=== PATIENT | female | born 1940 | race African-American/Black ===

== ENCOUNTER 2023-08-13 13:45 | Emergency (ER) | payer OTHER ==
[~2023-08-13] VITALS: Ht 167.6 cm; Wt 78.0 kg
[2023-08-13 13:47] VITALS: O2SAT 94
[2023-08-13] MEDS: SODIUM CHLORIDE 0.9% 1,000 ML IV ONE (14:36)
[2023-08-13 14:47] LABS: BASOPHILS % 0.6 % (0.0-2.0); EOSINOPHILS % 3.7 % (0.0-5.0); HEMATOCRIT. 33.4 % (36.0-48.0); HEMOGLOBIN. 11.1 g/dL (12.0-16.0); LYMPHOCYTES % 15.8 % (20.0-50.0); MEAN CORPUSCULAR HEMOGLOBIN 29.5 pg (28.0-32.0); MEAN CORPUSCULAR HGB CONC 33.2 g/dL (31.0-37.0); MEAN CORPUSCULAR VOLUME 88.8 fL (81.0-99.0); MEAN PLATELET VOLUME 9.8 fl (7.4-10.4); MONOCYTES % 7.3 % (2.0-8.0); NEUTROPHILS % 72.6 % (40.0-76.0); PLATELET 202 x1000/uL (130-400); RED BLOOD CELL COUNT 3.77 mill/uL (4.2-5.4); RED CELL DISTRIBUTION WIDTH 15.8 % (11.6-14.6); WHITE BLOOD COUNT 6.6 x1000/uL (4.5-11.0)
[2023-08-13 14:48] LABS: ALANINE AMINOTRANSFERASE 11 IU/L (10-49); ALBUMIN 4.1 g/dL (3.2-4.8); ASPARTATE AMINOTRANSFERASE 17 IU/L (<34); BILIRUBIN TOTAL 0.4 mg/dL (0.1-1.0); CALCIUM 8.5 mg/dL (8.7-10.4); CARBON DIOXIDE 25 mEq/L (21-32); CHLORIDE 106 mEq/L (98-107); GLUCOSE 127 mg/dL (70-105); POTASSIUM 3.5 mEq/L (3.5-5.1); PROTEIN TOTAL 6.3 g/dL (6.0-8.3); SODIUM 139 mEq/L (136-145); UREA NITROGEN BLOOD 26 mg/dL (9-23)
[2023-08-13 14:52] LABS: TROPONIN I HIGH SENSITIVITY < 4 ng/L (3.0-34)
[2023-08-13 16:11] LABS: CLARITY URINE CLEAR (CLEAR); COLOR URINE YELLOW (YELLOW); GLUCOSE URINE NEGATIVE (NEGATIVE); KETONES URINE NEGATIVE (NEGATIVE); LEUKOCYTE ESTERASE URINE NEGATIVE (NEGATIVE); NITRITE URINE NEGATIVE (NEGATIVE); OCCULT BLOOD URINE NEGATIVE (NEGATIVE); PH URINE 6.5 (4.5-8.0); PROTEIN URINE NEGATIVE (NEGATIVE); SPECIFIC GRAVITY URINE 1.012 (1.005-1.030)
[2023-08-13] MEDS: HALOPERIDOL LACTATE 5MG/ML VIAL IM ONE (18:52)
[2023-08-13 19:29] VITALS: BP 129/63; PULSE 85; RESP 16; TEMP 98.2
[2023-08-13] MEDS: CEFTRIAXONE 1GM/50ML 50 ML IV ONE (19:29)
== END 2023-08-13 19:57 | disposition short-term general hospital (02) ==
LOC: ER 13:45 → EDBEDREQ 14:14 → EDBEDREQSVC 15:21 → ER 19:57 → CANBEDREQ 22:54
DX: R55 Syncope and collapse (principal); F03.90 Unspecified dementia, unspecified severity, without behavioral disturbance, psychotic disturbance, mood disturbance, and anxiety; I10 Essential (primary) hypertension; E03.9 Hypothyroidism, unspecified
CPT/HCPCS: 99285; 96365; 70450; 71045; 96361; 80053; 81003; 83605; 85025; 87040; 84484; 36415; 93005; 96372; J0696; J1630; J7030

== ENCOUNTER 2024-04-18 15:57 | Emergency (ER) | payer OTHER ==
[~2024-04-18] VITALS: Ht 160 cm; Wt 54.0 kg
[2024-04-18 16:03] VITALS: O2SAT 97
[2024-04-18 16:54] LABS: BASOPHILS % 0.6 % (0.0-2.0); EOSINOPHILS % 4.3 % (0.0-5.0); HEMATOCRIT. 36.5 % (36.0-48.0); HEMOGLOBIN. 12.1 g/dL (12.0-16.0); LYMPHOCYTES % 22.1 % (20.0-50.0); MEAN CORPUSCULAR HEMOGLOBIN 29.7 pg (28.0-32.0); MEAN CORPUSCULAR HGB CONC 33.1 g/dL (31.0-37.0); MEAN CORPUSCULAR VOLUME 89.6 fL (81.0-99.0); MONOCYTES % 6.8 % (2.0-8.0); NEUTROPHILS % 66.2 % (40.0-76.0); PLATELET 277 x1000/uL (130-400); RED BLOOD CELL COUNT 4.08 mill/uL (4.2-5.4); RED CELL DISTRIBUTION WIDTH 14.3 % (11.6-14.6)
[2024-04-18 17:03] LABS: CHLORIDE 109 mEq/L (98-107); SODIUM 143 mEq/L (136-145)
[2024-04-18 17:04] LABS: CARBON DIOXIDE 25 mEq/L (21-32)
[2024-04-18 17:05] LABS: CALCIUM 9.3 mg/dL (8.7-10.4)
[2024-04-18 17:09] LABS: CREATININE 1.1 mg/dL (0.6-1.0); GLUCOSE 111 mg/dL (70-105)
[2024-04-18 17:10] LABS: UREA NITROGEN BLOOD 30 mg/dL (9-23)
[2024-04-18 17:14] LABS: THYROID STIMULATING HORMONE 2.48 uIU/mL (0.55-4.78)
[2024-04-18 17:23] LABS: TROPONIN I HIGH SENSITIVITY < 4 ng/L (3.0-34)
[2024-04-18] MEDS: LORAZEPAM 2MG/ML INJ IV ONE (18:47)
[2024-04-18 22:06] LABS: TROPONIN I HIGH SENSITIVITY < 4 ng/L (3.0-34)
[2024-04-18 23:54] VITALS: BP 161/71; PULSE 68; RESP 16; TEMP 37.05852; O2SAT 100
== END 2024-04-18 23:57 | disposition short-term general hospital (02) ==
LOC: ER 15:57
DX: R55 Syncope and collapse (principal); F03.90 Unspecified dementia, unspecified severity, without behavioral disturbance, psychotic disturbance, mood disturbance, and anxiety; E03.9 Hypothyroidism, unspecified; I10 Essential (primary) hypertension; Z91.040 Latex allergy status
CPT/HCPCS: 99285; 96374; 71045; 80048; 82962; 83880; 83605; 84443; 85025; 84484; 36415; 93005; J2060

== ENCOUNTER 2024-04-20 15:03 | Emergency (ER) | payer OTHER ==
[~2024-04-20] VITALS: Ht 167.6 cm; Wt 70.0 kg
[2024-04-20 15:06] VITALS: O2SAT 98
[2024-04-20 15:36] LABS: BASOPHILS % 0.8 % (0.0-2.0); EOSINOPHILS % 6.5 % (0.0-5.0); HEMATOCRIT. 35.7 % (36.0-48.0); LYMPHOCYTES % 28.2 % (20.0-50.0); MEAN CORPUSCULAR HEMOGLOBIN 29.8 pg (28.0-32.0); MEAN CORPUSCULAR HGB CONC 33.6 g/dL (31.0-37.0); MEAN CORPUSCULAR VOLUME 88.5 fL (81.0-99.0); MEAN PLATELET VOLUME 8.9 fl (7.4-10.4); MONOCYTES % 7.5 % (2.0-8.0); PLATELET 246 x1000/uL (130-400); RED BLOOD CELL COUNT 4.03 mill/uL (4.2-5.4); RED CELL DISTRIBUTION WIDTH 14.4 % (11.6-14.6); WHITE BLOOD COUNT 6.6 x1000/uL (4.5-11.0)
[2024-04-20 15:45] LABS: CHLORIDE 107 mEq/L (98-107); POTASSIUM 3.6 mEq/L (3.5-5.1); SODIUM 141 mEq/L (136-145)
[2024-04-20 15:46] LABS: CALCIUM 9.4 mg/dL (8.7-10.4); CARBON DIOXIDE 24 mEq/L (21-32)
[2024-04-20 15:51] LABS: GLUCOSE 114 mg/dL (70-105); UREA NITROGEN BLOOD 31 mg/dL (9-23)
[2024-04-20 16:12] LABS: TROPONIN I HIGH SENSITIVITY < 4 ng/L (3.0-34)
[2024-04-20 19:07] VITALS: BP 131/68; PULSE 88; RESP 14; TEMP 36.66960; O2SAT 98
== END 2024-04-20 19:37 | disposition short-term general hospital (02) ==
LOC: ER 15:03 → EDBEDREQ 15:17 → ER 19:37
DX: R55 Syncope and collapse (principal); R07.89 Other chest pain; R06.02 Shortness of breath; I10 Essential (primary) hypertension; F03.90 Unspecified dementia, unspecified severity, without behavioral disturbance, psychotic disturbance, mood disturbance, and anxiety; Z91.040 Latex allergy status; Z86.39 Personal history of other endocrine, nutritional and metabolic disease
CPT/HCPCS: 36415; 71045; 80048; 84484; 85025; 93005; 99285

== ENCOUNTER 2024-06-22 14:16 | Emergency (ER) | payer OTHER ==
[~2024-06-22] VITALS: Ht 160 cm; Wt 65.0 kg
[2024-06-22 14:23] VITALS: O2SAT 98
[2024-06-22 15:52] LABS: BASOPHILS % 1.2 % (0.0-2.0); EOSINOPHILS % 5.7 % (0.0-5.0); HEMATOCRIT. 34.8 % (36.0-48.0); HEMOGLOBIN. 11.5 g/dL (12.0-16.0); LYMPHOCYTES % 15.3 % (20.0-50.0); MEAN CORPUSCULAR HEMOGLOBIN 29.3 pg (28.0-32.0); MEAN CORPUSCULAR HGB CONC 33.2 g/dL (31.0-37.0); MEAN CORPUSCULAR VOLUME 88.4 fL (81.0-99.0); MEAN PLATELET VOLUME 8.5 fl (7.4-10.4); MONOCYTES % 5.8 % (2.0-8.0); PLATELET 283 x1000/uL (130-400); RED BLOOD CELL COUNT 3.93 mill/uL (4.2-5.4); RED CELL DISTRIBUTION WIDTH 14.4 % (11.6-14.6); WHITE BLOOD COUNT 6.2 x1000/uL (4.5-11.0)
[2024-06-22] MEDS: SODIUM CHLORIDE 0.9% (SEPSIS BOLUS) IV ONE (15:53)
[2024-06-22 15:59] LABS: CHLORIDE 106 mEq/L (98-107); SODIUM 141 mEq/L (136-145)
[2024-06-22 16:00] LABS: CARBON DIOXIDE 28 mEq/L (21-32)
[2024-06-22 16:01] LABS: CALCIUM 9.5 mg/dL (8.7-10.4)
[2024-06-22 16:05] LABS: CREATININE 0.9 mg/dL (0.6-1.0); GLUCOSE 125 mg/dL (70-105)
[2024-06-22 16:06] LABS: UREA NITROGEN BLOOD 23 mg/dL (9-23)
[2024-06-22 16:19] LABS: TROPONIN I HIGH SENSITIVITY < 4 ng/L (3.0-34)
[2024-06-22 16:38] LABS: INR 0.9; PROTHROMBIN TIME 10.3 sec (9.6-11.0)
[2024-06-22] MEDS: ONDANSETRON HCL 4MG/2ML INJ IV ONE (16:39)
[2024-06-22] MEDS: CEFTRIAXONE 1GM/50ML 50 ML IV ONE (16:39)
[2024-06-22] MEDS: LORAZEPAM 2MG/ML INJ IV ONE (18:48)
[2024-06-22] MEDS ORDERED: LORAZEPAM 2MG/ML INJ IV ONE (20:15)
[2024-06-22] MEDS ORDERED: ONDA4TAB50 MT (20:26)
[2024-06-22 23:11] VITALS: BP 152/73; PULSE 70; RESP 14; TEMP 36.55848; O2SAT 100
== END 2024-06-22 23:17 ==
LOC: ER 14:16 → EDBEDREQTM 18:11 → EDBEDREQSVC 18:11 → EDBEDREQ 18:11 → ER 23:17
DX: R55 Syncope and collapse (principal); R10.9 Unspecified abdominal pain; F03.90 Unspecified dementia, unspecified severity, without behavioral disturbance, psychotic disturbance, mood disturbance, and anxiety; E03.9 Hypothyroidism, unspecified; I10 Essential (primary) hypertension; Z91.040 Latex allergy status
CPT/HCPCS: 99285; 74176; 96365; 96375; 71045; 96361; 80048; 83605; 85025; 85610; 87040; 84484; 36415; 84145; 93005; J0696; J2060; J2405; J7030

== ENCOUNTER 2025-02-24 15:03 | Emergency (ER) | payer OTHER ==
[~2025-02-24] VITALS: Ht 165.1 cm; Wt 61.0 kg
[~2025-02-24 15:03] MED LIST: ONDA4TAB50 MT
[2025-02-24 15:10] VITALS: O2SAT 99
[2025-02-24] MEDS: SODIUM CHLORIDE 0.9% 1,000 ML IV ONE (16:08)
[2025-02-24 16:31] LABS: BASOPHILS % 0.7 % (0.0-2.0); EOSINOPHILS % 1.8 % (0.0-5.0); HEMATOCRIT. 32.5 % (36.0-48.0); HEMOGLOBIN. 10.8 g/dL (12.0-16.0); LYMPHOCYTES % 9.8 % (20.0-50.0); MEAN PLATELET VOLUME 9.3 fl (7.4-10.4); MONOCYTES % 5.8 % (2.0-8.0); NEUTROPHILS % 81.9 % (40.0-76.0); PLATELET 253 x1000/uL (130-400); RED BLOOD CELL COUNT 3.74 mill/uL (4.2-5.4); RED CELL DISTRIBUTION WIDTH 14.3 % (11.6-14.6)
[2025-02-24 16:46] LABS: CREATININE 0.8 mg/dL (0.6-1.0); UREA NITROGEN BLOOD 17 mg/dL (9-23)
[2025-02-24 16:47] LABS: TROPONIN I HIGH SENSITIVITY < 4 ng/L (3.0-34)
[2025-02-24 19:31] LABS: TROPONIN I HIGH SENSITIVITY < 4 ng/L (3.0-34)
[2025-02-24 20:21] LABS: BASOPHILS % 0.4 % (0.0-2.0); EOSINOPHILS % 0.3 % (0.0-5.0); HEMATOCRIT. 35.7 % (36.0-48.0); HEMOGLOBIN. 11.7 g/dL (12.0-16.0); LYMPHOCYTES % 9.9 % (20.0-50.0); MEAN PLATELET VOLUME 8.6 fl (7.4-10.4); MONOCYTES % 4.2 % (2.0-8.0); NEUTROPHILS % 85.2 % (40.0-76.0); PLATELET 286 x1000/uL (130-400); RED BLOOD CELL COUNT 4.08 mill/uL (4.2-5.4); RED CELL DISTRIBUTION WIDTH 14.3 % (11.6-14.6)
[2025-02-24 20:30] LABS: INR 1.0
[2025-02-24 20:33] LABS: CREATININE 0.7 mg/dL (0.6-1.0); UREA NITROGEN BLOOD 14 mg/dL (9-23)
[2025-02-24 20:34] LABS: TROPONIN I HIGH SENSITIVITY < 4 ng/L (3.0-34)
[2025-02-24 20:35] LABS: ASPARTATE AMINOTRANSFERASE 16 IU/L (<34); BILIRUBIN DIRECT < 0.1 mg/dL (<=3.0); BILIRUBIN TOTAL 0.3 mg/dL (0.1-1.0); PROTEIN TOTAL 6.4 g/dL (6.0-8.3)
[2025-02-24] MEDS ORDERED: ATOR40TA70 PO (21:41)
[2025-02-24] MEDS ORDERED: LEVO50TA8 PO (21:41)
[2025-02-24] MEDS ORDERED: QUET25TA36 PO (21:41)
[2025-02-24] MEDS ORDERED: ZOLPIDEM TARTRATE 5MG TABLET PO PRN (21:45)
[2025-02-24] MEDS ORDERED: ACETAMINOPHEN 325MG TABLET PO PRN (21:45)
[2025-02-24] MEDS ORDERED: CLONIDINE 0.1MG TABLET PO PRN (21:45)
[2025-02-24] MEDS ORDERED: ONDANSETRON HCL 4MG/2ML INJ IV PRN (21:45)
[2025-02-24] MEDS ORDERED: MAGNESIUM/ALUMINUM HYDROXIDE/SIMETHICONE 30ML UDC PO PRN (21:45)
[2025-02-24] MEDS ORDERED: SODIUM CHLORIDE 0.9% 1,000 ML IV SCH (21:45)
[2025-02-24] MEDS ORDERED: MORPHINE SULFATE 4 MG/ML INJ (FOR IV/IM USE) IV PRN (21:45)
[2025-02-24] MEDS ORDERED: HYDROCODONE/ACETAMINOPHEN 5/325MG TABLET PO PRN (21:45)
[2025-02-24] MEDS ORDERED: NALOXONE HCL 0.4MG/ML VIAL IV PRN (22:00)
[2025-02-24 22:40] VITALS: BP 155/80; PULSE 69; RESP 20; TEMP 36.5; O2SAT 99
[2025-02-25] MEDS ORDERED: LEVOTHYROXINE SODIUM 50MCG TABLET PO SCH (07:50)
[2025-02-25] MEDS ORDERED: ENOXAPARIN 40MG/0.4ML SYR SUBCUT SCH (09:00)
[2025-02-25] MEDS ORDERED: PANTOPRAZOLE SODIUM 40 MG/VIAL IV SCH (09:00)
[2025-02-25] MEDS ORDERED: QUETIAPINE FUMARATE 50MG TABLET PO SCH (09:00)
[2025-02-25] MEDS ORDERED: ATORVASTATIN CALCIUM 40MG TABLET PO SCH (21:00)
== END 2025-02-24 23:00 | disposition short-term general hospital (02) ==
LOC: ER 15:03 → EDBEDREQ 16:07 → ER 23:00 → CMPBEDREQ 02-25 08:30
DX: R55 Syncope and collapse (principal); F03.90 Unspecified dementia, unspecified severity, without behavioral disturbance, psychotic disturbance, mood disturbance, and anxiety; I10 Essential (primary) hypertension; Z79.890 Hormone replacement therapy; Z79.899 Other long term (current) drug therapy; Z91.040 Latex allergy status
CPT/HCPCS: 99285; 96360; 70450; 71045; 80076; 80048; 83735; 84443; 85025; 85379; 85610; 84484; 93005; 36415; J7030